=== PATIENT | male | born 1980 | race African-American/Black ===

== ENCOUNTER 2020-03-12 07:51 | Inpatient (IN) | payer OTHER ==
[~2020-03-12] VITALS: Ht 182.9 cm; Wt 94.2 kg
[2020-03-12] MEDS ORDERED: IV NORMAL SALINE 1000ML BAG 1,000 ML IV ONE ×4 (08:05→11:30)
[2020-03-12] MEDS ORDERED: ONDANSETRON PF 4 MG/2 ML VIAL. ONE (08:14)
[2020-03-12] MEDS ORDERED: MORPHINE SULFATE 2 MG/ML VIAL. IV PRN (08:30)
[2020-03-12] MEDS ORDERED: MORPHINE SULFATE 4 MG/ML VIAL. IV PRN (08:30)
[2020-03-12] MEDS ORDERED: fentaNYL PF VIAL 100 MCG/2 ML VIAL IV PRN (08:30)
--- NOTE | 2020-03-12 08:42 | PHYS DOC ---
General Adult EDM: Chief Complaint: DRUG ABUSE HPI: HPI: History obtained from EMS. Patient is a 40-year-old male who presents with chief complaint of altered mental status. Per EMS they were called to the patient's house by police for combative behavior. Family states he recently got out of [facility]. Family states concern for PCP usage. EMS states on arrival he was naked laying down in the front yard. They state upon arrival the patient was not combative. No medication was administered prior to arrival. No further history can be obtained. Review of Systems: Review of Systems: Review of symptoms on able to be obtained secondary to patient's un responsiveness Heart Score: Risk Factors: Risk Factors: DM, Current or recent (<one month) smoker, HTN, HLP, family history of CAD, obesity. Risk Scores: Score 0 - 3: 2.5% MACE over next 6 weeks - Discharge Home Score 4 - 6: 20.3% MACE over next 6 weeks - Admit for Clinical Observation Score 7 - 10: 72.7% MACE over next 6 weeks - Early Invasive Strategies Current Medications: Current Medications Medications (Trade) Dose Ordered Sig/Kylee Start Time Stop Time Status Last Admin Dose Admin Chlorhexidine Gluconate (Peridex) 15 ml BID 03/12/20 09:00 Fentanyl Citrate (Fentanyl 2ml Vial) 50 mcg PRN Q1HR PRN 03/12/20 08:30 Levetiracetam 4500 mg/Dextrose 145 ml @ 440 mls/hr 1X ONCE 03/12/20 08:30 03/12/20 08:49 UNV Lorazepam (Ativan Inj) 2 mg STK-MED ONCE 03/12/20 08:05 03/12/20 08:06 DC Morphine Sulfate (Morphine Sulfate) 4 mg PRN Q1HR PRN 03/12/20 08:30 Ondansetron HCl (Zofran) 4 mg STK-MED ONCE 03/12/20 08:14 03/12/20 08:14 DC Propofol 100 ml @ 1.5 mls/hr CONT PRN 03/12/20 09:00 Allergies: Allergies: Allergies Coded Allergies Type Severity Reaction Last Updated Verified Unable to Assess 03/12/20 No Physical Exam: PE: Constitutional: Unresponsive HENT: Normocephalic, atraumatic, bilateral external ears normal, oropharynx moist, no oral exudates, nose normal. Clenched jaw noted. [] Eyes: PERRLA, EOMI, conjunctiva injected, no discharge. [] Neck: Normal range of motion, no tenderness, supple, no stridor. [] Cardiovascular:tachycardic, rhythm, no murmur [] Lungs & Thorax: Bilateral breath sounds rhonchorous bilaterally [] Abdomen: soft, no tenderness, no masses, no pulsatile masses. [] Skin: Warm, dry, no erythema, no rash. [] Back: No tenderness, no CVA tenderness. [] Extremities: Abrasion noted overlying the right knee. No obvious extremity deformities appreciated Neurologic: GCS 3 Current Patient Data: Labs: Laboratory Tests Test 03/12/20 08:05 03/12/20 08:12 03/12/20 08:47 03/12/20 08:53 White Blood Count 16.0 x10^3/uL Red Blood Count 5.81 x10^6/uL Hemoglobin 16.9 g/dL Hematocrit 49.8 % Mean Corpuscular Volume 86 fL Mean Corpuscular Hemoglobin 29 pg Mean Corpuscular Hemoglobin Concent 34 g/dL Red Cell Distribution Width 13.9 % Platelet Count 336 x10^3/uL Neutrophils (%) (Auto) 87 % Lymphocytes (%) (Auto) 9 % Monocytes (%) (Auto) 4 % Eosinophils (%) (Auto) 0 % Basophils (%) (Auto) 0 % Neutrophils # (Auto) 13.9 x10^3/uL Lymphocytes # (Auto) 1.4 x10^3/uL Monocytes # (Auto) 0.7 x10^3/uL Eosinophils # (Auto) 0.0 x10^3/uL Basophils # (Auto) 0.0 x10^3/uL Platelet Estimate Pending Sodium Level 138 mmol/L Potassium Level 3.2 mmol/L Chloride Level 102 mmol/L Carbon Dioxide Level 23 mmol/L Anion Gap 13 Blood Urea Nitrogen 9 mg/dL Creatinine 1.6 mg/dL Estimated GFR (Cockcroft-Gault) 48.4 BUN/Creatinine Ratio 6 Glucose Level 123 mg/dL Calcium Level 9.2 mg/dL Magnesium Level 2.3 mg/dL Total Bilirubin 0.7 mg/dL Aspartate Amino Transf (AST/SGOT) 42 U/L Alanine Aminotransferase (ALT/SGPT) 20 U/L Alkaline Phosphatase 84 U/L Creatine Kinase 1854 U/L Troponin I Quantitative < 0.017 ng/mL [id number] Natriuretic Peptide 97 pg/mL Total Protein 8.0 g/dL Albumin 4.2 g/dL Albumin/Globulin Ratio 1.1 Lipase 44 U/L Salicylates Level < 2.8 mg/dL Salicylate Last Dose Date Unknown Salicylate Last Dose Time Unknown Acetaminophen Level < 2 mcg/ml Acetaminophen Last Dose Date Unknown Acetaminophen Last Dose Time Unknown Ethyl Alcohol Level < 10 mg/dL Glucose (Fingerstick) 118 mg/dL Lactic Acid Level 1.6 mmol/L Urine Collection Type Unknown Urine Color Yellow Urine Clarity Clear Urine pH 5.5 Urine Specific [place] 1.020 Urine Protein Negative mg/dL Urine Glucose (UA) Negative mg/dL Urine Ketones (Stick) 15 mg/dL Urine Blood Negative Urine Nitrite Negative Urine Bilirubin Negative Urine Urobilinogen Dipstick 1.0 mg/dL Urine Leukocyte Esterase Negative Urine RBC Occ /HPF Urine WBC Occ /HPF Urine Squamous Epithelial Cells Occ /LPF Urine Bacteria Few /HPF Urine Mucus Marked /LPF Urine Opiates Screen Neg Urine Methadone Screen Neg Urine Barbiturates Neg Urine Phencyclidine Screen Pos Urine Amphetamine/Methamphetamine Neg Urine Benzodiazepines Screen Neg Urine Cocaine Screen Pos Urine Cannabinoids Screen Pos Urine Ethyl Alcohol Neg Test 03/12/20 09:50 O2 Saturation 98 % Arterial Blood pH 7.26 Arterial Blood pCO2 at Patient Temp 44 mmHg Arterial Blood pO2 at Patient Temp 114 mmHg Arterial Blood HCO3 19 mmol/L Arterial Blood Base Excess -8 mmol/L Oxyhemoglobin 94.8 % Methemoglobin 0.4 % Carbon Monoxide, Quantitative 2.5 % FiO2 40 Current Medications Medications (Trade) Dose Ordered Sig/Kylee Route PRN Reason Start Time Stop Time Status Last Admin Dose Admin Lorazepam (Ativan Inj) 2 mg STK-MED ONCE .ROUTE 03/12/20 08:05 03/12/20 08:06 DC Ondansetron HCl (Zofran) 4 mg STK-MED ONCE .ROUTE 03/12/20 08:14 03/12/20 08:14 DC Fentanyl Citrate 30 ml @ 0 mls/hr CONT PRN IV SEE PROTOCOL 03/12/20 09:00 Fentanyl Citrate (Fentanyl 2ml Vial) 25 mcg PRN Q1HR PRN IV SEE COMMENTS 03/12/20 08:30 Fentanyl Citrate (Fentanyl 2ml Vial) 50 mcg PRN Q1HR PRN IV SEE COMMENTS 03/12/20 08:30 Chlorhexidine Gluconate (Peridex) 15 ml BID MM 03/12/20 09:00 Morphine Sulfate (Morphine Sulfate) 2 mg PRN Q1HR PRN IV SEE COMMENTS. 03/12/20 08:30 Morphine Sulfate (Morphine Sulfate) 4 mg PRN Q1HR PRN IV SEE COMMENTS. 03/12/20 08:30 Levetiracetam 4500 mg/Dextrose 145 ml @ 440 mls/hr 1X ONCE IV 03/12/20 09:00 03/12/20 09:19 DC 03/12/20 09:15 Propofol 100 ml @ 1.5 mls/hr CONT PRN IV SEDATION 03/12/20 09:00 03/12/20 09:03 Iohexol (Omnipaque 300 Mg/ml) 75 ml 1X ONCE IV 03/12/20 09:30 03/12/20 09:31 DC 03/12/20 09:52 Info (CONTRAST GIVEN -- Rx MONITORING) 1 each PRN DAILY PRN MC SEE COMMENTS 03/12/20 09:15 03/14/20 09:14 Enoxaparin Sodium (Lovenox 40mg Syringe) 30 mg BID ONCE SQ 03/12/20 10:00 03/12/20 10:01 DC Etomidate (Amidate) 20 mg STK-MED ONCE IV 03/12/20 09:52 03/12/20 09:52 DC Rocuronium [place] (Zemuron) 50 mg STK-MED ONCE .ROUTE 03/12/20 09:52 03/12/20 09:53 DC Vital Signs: Vital Signs Date Time Temp Pulse Resp B/P (MAP) Pulse Ox O2 Delivery O2 Flow Rate FiO2 03/12/20 08:12 108 16 160/70 (100) 94 Room Air 03/12/20 08:04 95 16 159/87 (111) 94 Room Air 03/12/20 07:51 98 16 168/109 (128) 94 Room Air EKG: EKG: [] EKG consistent with normal sinus rhythm. Ventricular rate of 86 bpm. [place] normal. Intervals normal. Flipped T waves noted in the lateral precordial leads. No ST segment elevation appreciated. Radiology/Procedures: Radiology/Procedures: Endotracheal Intubation Procedure Note [place] Protocol: 1. Pre-procedure verification: - Correct patient, correct site, correct procedure (correct patient verified against two identifiers: name and date of ) - H&P or H&P update complete and in medical record - Review of: Radiology images, scans, labs, pathology, biopsy reports with appropriate identifiers (if applicable) - Any required blood products, implants, devices, and/or special equipment for the procedure (if applicable) 2. Site Markings - when appropriate: N/A 3. Time Out: Time out performed (Includes validating the following: Correct patient, correct side/site marked and procedure to performed, correct position) Procedure Details: Procedure: Endotracheal intubation Indication: Acute Respiratory Failure secondary to unresponsiveness Consent: Emergency consent Procedure: The patient was placed in the supine position and pre-oxygenated with nasal cannula. Sedation was given with 30 mg of etomidate. Using a glide scope 4 blade, the cords were visualized; an 7.5 cuffed tube was able to be passed through the cords with direct visualization. Condensation was seen in the tube; bilateral breath-sounds were present, with none auscultated over the abdomen; good color change was present on EtCO2 detector. A CXR is ordered to cofirm placement. The ETT was secured at 24 cm at the lips. Mechanical ventilation is initiated at A/C, Vt 400ml, 40% FiO2, rate 16, PEEP 5. The patient tolerated procedure without immediate complication. Randall Muir DO [] [facility] [address] [place] [address] IMAGING REPORT Signed PATIENT: TRINA MCFARLAND ACCOUNT: [id number] : 1980 LOCATION: ER AGE: 40 SEX: M EXAM STATUS: REG ER ORD. PHYSICIAN: RANDALL MUIR DO REASON: FOUND DOWN, UNRESPONSIVE PROCEDURE: CT THORACIC SPINE RECONSTRUCT CT CHEST ABD PELVIS W/CONTRAST, CT THORACIC SPINE RECONSTRUCT, CT LUMBAR SPINE RECONSTRUCTION Clinical Indication: Found down, unresponsive COMPARISON: None TECHNIQUE: Multiple contiguous axial images were obtained throughout the chest, abdomen, and pelvis with the use of IV contrast. Axial images were reformatted into coronal and sagittal planes. Dedicated multiplanar reconstructions of the thoracic and lumbar spine were also obtained. 60 mL Omnipaque 300 was administered. One or more of the following dose reduction techniques were utilized: Automated exposure control (AEC), Adjustment of mA and/or kV according to patient size, Use of iterative reconstruction technique such as ASiR, CT scan done according to ALARA and image gently/image wisely. Findings: Endotracheal and enteric tubes in place. The thyroid is symmetric. There is no axillary, mediastinal, or hilar adenopathy. The thoracic aorta diameter is normal. The cardiac size is normal. There is no pericardial effusion. The central airways are patent. Bibasilar dependent opacities. No pleural effusion is observed. There is no pneumothorax. The liver, gallbladder, spleen, pancreas, and adrenal glands are unremarkable. The kidneys are unremarkable. There is no significant mesenteric or retroperitoneal adenopathy identified. There is no evidence of free intraperitoneal fluid or pneumoperitoneum. Visualized portions of the bowel are grossly unremarkable. Normal urinary bladder with Grossman catheter in place. There is no significant pelvic ascites. No significant iliac or inguinal adenopathy is identified. No acute osseous abnormality. IMPRESSION: 1. Bibasilar dependent opacities probably represents subsegmental atelectasis, although aspiration could have a similar appearance. 2. No acute abdominal process. 3. No acute thoracic or lumbar spine fracture. Electronically signed by: Matt Campo MD (03/12/2020 10:15 AM) [id number] DICTATED and SIGNED BY: MATT CAMPO MD DATE: 03/12/20 1015 [facility] [address] [place] [address] IMAGING REPORT Signed PATIENT: TRINA MCFARLAND ACCOUNT: [id number] : 1980 LOCATION: ER AGE: 40 SEX: M EXAM STATUS: REG ER ORD. PHYSICIAN: RANDALL MUIR DO REASON: FOUND DOWN, UNRESPONSIVE PROCEDURE: CT LUMBAR SPINE RECONSTRUCTION CT CHEST ABD PELVIS W/CONTRAST, CT THORACIC SPINE RECONSTRUCT, CT LUMBAR SPINE RECONSTRUCTION Clinical Indication: Found down, unresponsive COMPARISON: None TECHNIQUE: Multiple contiguous axial images were obtained throughout the chest, abdomen, and pelvis with the use of IV contrast. Axial images were reformatted into coronal and sagittal planes. Dedicated multiplanar reconstructions of the thoracic and lumbar spine were also obtained. 60 mL Omnipaque 300 was administered. One or more of the following dose reduction techniques were utilized: Automated exposure control (AEC), Adjustment of mA and/or kV according to patient size, Use of iterative reconstruction technique such as ASiR, CT scan done according to ALARA and image gently/image wisely. Findings: Endotracheal and enteric tubes in place. The thyroid is symmetric. There is no axillary, mediastinal, or hilar adenopathy. The thoracic aorta diameter is normal. The cardiac size is normal. There is no pericardial effusion. The central airways are patent. Bibasilar dependent opacities. No pleural effusion is observed. There is no pneumothorax. The liver, gallbladder, spleen, pancreas, and adrenal glands are unremarkable. The kidneys are unremarkable. There is no significant mesenteric or retroperitoneal adenopathy identified. There is no evidence of free intraperitoneal fluid or pneumoperitoneum. Visualized portions of the bowel are grossly unremarkable. Normal urinary bladder with Grossman catheter in place. There is no significant pelvic ascites. No significant iliac or inguinal adenopathy is identified. No acute osseous abnormality. IMPRESSION: 1. Bibasilar dependent opacities probably represents subsegmental atelectasis, although aspiration could have a similar appearance. 2. No acute abdominal process. 3. No acute thoracic or lumbar spine fracture. Electronically signed by: Matt Campo MD (03/12/2020 10:15 AM) [id number] DICTATED and SIGNED BY: MATT CAMPO MD DATE: 03/12/20 1015 [facility] [address] [place], [place] [id number] IMAGING REPORT Signed PATIENT: TRINA MCFARLAND ACCOUNT: [id number] : 1980 LOCATION: ER AGE: 40 SEX: M EXAM STATUS: REG ER ORD. PHYSICIAN: RANDALL MUIR DO REASON: found down. unresponsive PROCEDURE: CT HEAD AND CERVICAL SPINE [facility] Compliance Statement: One or more of the following individualized dose reduction techniques were utilized for this examination: 1. Automated exposure control 2. Adjustment of the mA and/or kV according to patient size 3. Use of iterative reconstruction technique CT HEAD AND CERVICAL SPINE WITHOUT CONTRAST History: Reason: found down. unresponsive / Spl. Instructions: / History: Comparison: None. Procedure: Axial images are obtained of the head from the skull base through the vertex without IV contrast. Noncontrast helical CT of the cervical spine was performed. Axial, sagittal, and coronal reconstructions were obtained. Findings: The ventricles and sulci are normal for the patient's age. No mass-effect, midline shift, hemorrhage or obvious acute infarction is identified. Basilar cisterns are patent. Bone windows demonstrate no significant calvarial abnormality. The visualized paranasal sinuses are clear. Mastoid air cells are well aerated. There is no evidence of acute fracture or acute malalignment of the cervical spine. The facet joints are intact. The vertebral body height and alignment are maintained. There is minimal endplate spurring. No significant disc space narrowing. Endotracheal and enteric tubes are noted. Visualized soft tissues of the neck demonstrate no significant abnormalities. The visualized lung apices are clear. IMPRESSION: 1. No acute intracranial abnormality. 2. No acute fracture of the cervical spine. Electronically signed by: Scout Santana MD (03/12/2020 9:59 AM) [facility] DICTATED and SIGNED BY: SCOUT SANTANA MD DATE: 03/12/20958 [facility] [address] [place], [place] [id number] IMAGING REPORT Signed PATIENT: TRINA MCFARLAND ACCOUNT: [id number] : 1980 LOCATION: ER AGE: 40 SEX: M EXAM STATUS: REG ER ORD. PHYSICIAN: RANDALL MUIR DO REASON: found down. unresponsive PROCEDURE: CT CHEST ABD PELVIS W/CONTRAST CT CHEST ABD PELVIS W/CONTRAST, CT THORACIC SPINE RECONSTRUCT, CT LUMBAR SPINE RECONSTRUCTION Clinical Indication: Found down, unresponsive COMPARISON: None TECHNIQUE: Multiple contiguous axial images were obtained throughout the chest, abdomen, and pelvis with the use of IV contrast. Axial images were reformatted into coronal and sagittal planes. Dedicated multiplanar reconstructions of the thoracic and lumbar spine were also obtained. 60 mL Omnipaque 300 was administered. One or more of the following dose reduction techniques were utilized: Automated exposure control (AEC), Adjustment of mA and/or kV according to patient size, Use of iterative reconstruction technique such as ASiR, CT scan done according to ALARA and image gently/image wisely. Findings: Endotracheal and enteric tubes in place. The thyroid is symmetric. There is no axillary, mediastinal, or hilar adenopathy. The thoracic aorta diameter is normal. The cardiac size is normal. There is no pericardial effusion. The central airways are patent. Bibasilar dependent opacities. No pleural effusion is observed. There is no pneumothorax. The liver, gallbladder, spleen, pancreas, and adrenal glands are unremarkable. The kidneys are unremarkable. There is no significant mesenteric or retroperitoneal adenopathy identified. There is no evidence of free intraperitoneal fluid or pneumoperitoneum. Visualized portions of the bowel are grossly unremarkable. Normal urinary bladder with Grossman catheter in place. There is no significant pelvic ascites. No significant iliac or inguinal adenopathy is identified. No acute osseous abnormality. IMPRESSION: 1. Bibasilar dependent opacities probably represents subsegmental atelectasis, although aspiration could have a similar appearance. 2. No acute abdominal process. 3. No acute thoracic or lumbar spine fracture. Electronically signed by: Matt Campo MD (03/12/2020 10:15 AM) [id number] DICTATED and SIGNED BY: MATT CAMPO MD DATE: 03/12/20 1015 [facility] [address] [place], [place] [id number] IMAGING REPORT Signed PATIENT: TRINA MCFARLAND ACCOUNT: [id number] : 1980 LOCATION: ER AGE: 40 SEX: M EXAM STATUS: REG ER ORD. PHYSICIAN: RANDALL MUIR DO REASON: confirm ET PROCEDURE: CHEST AP ONLY CHEST AP ONLY Clinical Indication: Reason: confirm ET / Comparison: None. Findings: Endotracheal tube tip is 4.6 cm superior to the kendall. The cardiomediastinal silhouette is normal. Lungs are clear. There is no pneumothorax. No pleural effusion is appreciated. No acute bone abnormality. Thin linear metallic density projects over the lateral left upper lung. There is fracture of this metallic density medially. The lateral metallic density may have a tiny luis felipe. Finding could be a needle or hook. Correlate to physical exam. IMPRESSION: 1. Endotracheal tube tip is 4.6 cm superior to the kendall. 2. Lungs are clear. 3. Possible metallic foreign body of the upper left chest. Electronically signed by: Scout Santana MD (03/12/2020 9:19 AM) [facility] DICTATED and SIGNED BY: SCOUT SANTANA MD DATE: 03/12/20918 Course & Med Decision Making: Course & Med Decision Making Pertinent Labs and Imaging studies reviewed. (See chart for details) [] Patient is a 40-year-old male who presents via EMS for unresponsiveness and possible substance abuse. On arrival patient had a GCS of 3. Child did appear clenched. No obvious signs of tonic-clonic activity. Pupils are 3 mm and sluggishly reactive bilaterally. He did have abrasions overlying the right knee. Initially I was concerned for subclinical seizure potential drug reaction. Patient was given 4 mg of IV Ativan. No response to the patient's mentation or change in the patient's jaw clenching. Given the unclear etiology of the patient's unresponsiveness, GCS 3, and outward signs of trauma the decision was made to intubate the patient for airway protection as well as to facilitate work-up. See procedure note for further details. Patient's UDS is positive for multiple substances including cocaine, PCP, marijuana. Mild elevation of CK indicating mild rhabdomyolysis. Mild JOLIE. Advanced trauma imaging was obtained was grossly unremarkable. Potential atelectasis in the bases bilaterally. Given a mild leukocytosis of 16,000 with unresponsiveness Unasyn will be administered given the potential for aspiration pneumonia versus pneumonitis. Patient was given aggressive fluid resuscitation. He was loaded with 4500 mg of Keppra given the possibility of subclinical seizures although I do have overall low suspicion of this. Patient has been comfortably sedated on propofol. Patient will require hospitalization and further ventilator management. Dragon Disclaimer: Dragon Disclaimer: This electronic medical record was generated, in whole or in part, using a voice recognition dictation system. Departure Departure Impression: Primary Impression: Respiratory failure Qualified Codes: J96.00 - Acute respiratory failure, unspecified whether with hypoxia or hypercapnia Additional Impressions: Polysubstance abuse Rhabdomyolysis Qualified Codes: M62.82 - Rhabdomyolysis JOLIE (acute kidney injury) Disposition: ADMITTED INPT THIS HOSP Condition: STABLE RANDALL MUIR DO Mar 12, 2020 08:42
[2020-03-12 08:45] LABS: BASO % 0 % (0-3); EOS % 0 % (0-3); HEMATOCRIT 49.8 % (39.0-53.0); HEMOGLOBIN 16.9 g/dL (13.0-17.5); LYMPH # 1.4 x10^3/uL (1.0-4.8); LYMPH % 9 % (24-48); MEAN CORPUSCULAR HEMOGLOBIN 29 pg (25-35); MEAN CORPUSCULAR HGB CONC 34 g/dL (31-37); MEAN CORPUSCULAR VOLUME 86 fL (79-100); MONO # 0.7 x10^3/uL (0.0-1.1); MONO % 4 % (0-9); NEUT # 13.9 x10^3/uL (1.8-7.7); NEUT % 87 % (31-73); PLATELET COUNT 336 x10^3/uL (140-400); RED BLOOD COUNT 5.81 x10^6/uL (4.30-5.70); RED CELL DISTRIBUTION WIDTH 13.9 % (11.5-14.5)
[2020-03-12 08:56] LABS: CALCIUM 9.2 mg/dL (8.5-10.1); CREATININE 1.6 mg/dL (0.7-1.3); GFR 48.4; POTASSIUM 3.2 mmol/L (3.5-5.1)
[2020-03-12 08:59] LABS: ACETAMIN < 2 mcg/ml (10-30); ETHANOL < 10 mg/dL (0-10); SALIC < 2.8 mg/dL (2.8-20.0)
[2020-03-12] MEDS ORDERED: LEVETIRACETAM IV ONE (09:00)
[2020-03-12] MEDS ORDERED: PROPOFOL 100 ML IV PRN (09:00)
[2020-03-12] MEDS ORDERED: DEXTROSE 5% IV ONE (09:00)
[2020-03-12] MEDS: CHLORHEXIDINE 0.12% 15 ML MOUTHWASH. MM SCH ×2 (09:00→21:38)
[2020-03-12 09:04] LABS: BILIRUBIN,URINE NEGATIVE (NEG); CLARITY,URINE CLEAR; COLOR,URINE YELLOW; NITRITE,URINE NEGATIVE (NEG); PH,URINE 5.5 (<5.0-8.0); PROTEIN,URINE NEGATIVE (NEG-TRACE)
[2020-03-12 09:11] LABS: ALBUMIN 4.2 g/dL (3.4-5.0); ALBUMIN/GLOBULIN RATIO 1.1 (1.0-1.7); MAGNESIUM 2.3 mg/dL (1.8-2.4); TOTAL BILIRUBIN 0.7 mg/dL (0.2-1.0)
[2020-03-12 09:13] LABS: BARBITURATES NEG (NEG); BENZODIAZEPINES NEG (NEG); CANNABINOIDS POS (NEG); COCAINE POS (NEG); METHADONE NEG (NEG); OPIATES NEG (NEG); PHENCYCLIDINE POS (NEG)
[2020-03-12 09:15] LABS: AMPHETAMINE/METHAMPHETAMINE NEG (NEG)
[2020-03-12] MEDS ORDERED: CONTRAST GIVEN. MC PRN (09:15)
--- NOTE | 2020-03-12 09:22 | RAD ---
CHEST AP ONLY Clinical Indication: Reason: confirm ET / Comparison: None. Findings: Endotracheal tube tip is 4.6 cm superior to the kendall. The cardiomediastinal silhouette is normal. Lungs are clear. There is no pneumothorax. No pleural effusion is appreciated. No acute bone abnormality. Thin linear metallic density projects over the lateral left upper lung. There is fracture of this metallic density medially. The lateral metallic density may have a tiny luis felipe. Finding could be a needle or hook. Correlate to physical exam. IMPRESSION: 1. Endotracheal tube tip is 4.6 cm superior to the kendall. 2. Lungs are clear. 3. Possible metallic foreign body of the upper left chest. Electronically signed by: Scout Santana MD (03/12/2020 9:19 AM) [facility]
[2020-03-12] MEDS ORDERED: IOHEXOL 300 MG/ML 100ML VIAL. IV ONE (09:30)
[2020-03-12 09:35] LABS: BACTERIA,URINE FEW /HPF (0-FEW); RBC,URINE OCC /HPF (0-2); WBC,URINE OCC /HPF (0-4)
[2020-03-12] MEDS ORDERED: ETOMIDATE 20 MG/10 ML VIAL. IV ONE (09:52)
[2020-03-12] MEDS ORDERED: ROCURONIUM 50 MG/5 ML VIAL. ONE (09:52)
[2020-03-12] MEDS ORDERED: ENOXAPARIN 40 MG/0.4 ML SYRINGE. SQ ONE (10:00)
--- NOTE | 2020-03-12 10:02 | RAD ---
PQRS Compliance Statement: One or more of the following individualized dose reduction techniques were utilized for this examination: 1. Automated exposure control 2. Adjustment of the mA and/or kV according to patient size 3. Use of iterative reconstruction technique CT HEAD AND CERVICAL SPINE WITHOUT CONTRAST History: Reason: found down. unresponsive / Spl. Instructions: / History: Comparison: None. Procedure: Axial images are obtained of the head from the skull base through the vertex without IV contrast. Noncontrast helical CT of the cervical spine was performed. Axial, sagittal, and coronal reconstructions were obtained. Findings: The ventricles and sulci are normal for the patient's age. No mass-effect, midline shift, hemorrhage or obvious acute infarction is identified. Basilar cisterns are patent. Bone windows demonstrate no significant calvarial abnormality. The visualized paranasal sinuses are clear. Mastoid air cells are well aerated. There is no evidence of acute fracture or acute malalignment of the cervical spine. The facet joints are intact. The vertebral body height and alignment are maintained. There is minimal endplate spurring. No significant disc space narrowing. Endotracheal and enteric tubes are noted. Visualized soft tissues of the neck demonstrate no significant abnormalities. The visualized lung apices are clear. IMPRESSION: 1. No acute intracranial abnormality. 2. No acute fracture of the cervical spine. Electronically signed by: Scout Santana MD (03/12/2020 9:59 AM) [facility]
[2020-03-12 10:13] LABS: PCO2 COOX 44 mmHg (35-46)
[2020-03-12 10:14] LABS: BASE EXCESS COOX -8 mmol/L (-3-3); HCO3 COOX 19 mmol/L (21-28); METHEMOGLOBIN 0.4 % (0.0-1.9); OXYHEMOGLOBIN 94.8 %; PO2 COOX 114 mmHg (75-108); SAT O2 COOX 98 % (92-99)
--- NOTE | 2020-03-12 10:18 | RAD ---
CT CHEST ABD PELVIS W/CONTRAST, CT THORACIC SPINE RECONSTRUCT, CT LUMBAR SPINE RECONSTRUCTION Clinical Indication: Found down, unresponsive COMPARISON: None TECHNIQUE: Multiple contiguous axial images were obtained throughout the chest, abdomen, and pelvis with the use of IV contrast. Axial images were reformatted into coronal and sagittal planes. Dedicated multiplanar reconstructions of the thoracic and lumbar spine were also obtained. 60 mL Omnipaque 300 was administered. One or more of the following dose reduction techniques were utilized: Automated exposure control (AEC), Adjustment of mA and/or kV according to patient size, Use of iterative reconstruction technique such as ASiR, CT scan done according to ALARA and image gently/image wisely. Findings: Endotracheal and enteric tubes in place. The thyroid is symmetric. There is no axillary, mediastinal, or hilar adenopathy. The thoracic aorta diameter is normal. The cardiac size is normal. There is no pericardial effusion. The central airways are patent. Bibasilar dependent opacities. No pleural effusion is observed. There is no pneumothorax. The liver, gallbladder, spleen, pancreas, and adrenal glands are unremarkable. The kidneys are unremarkable. There is no significant mesenteric or retroperitoneal adenopathy identified. There is no evidence of free intraperitoneal fluid or pneumoperitoneum. Visualized portions of the bowel are grossly unremarkable. Normal urinary bladder with Grossman catheter in place. There is no significant pelvic ascites. No significant iliac or inguinal adenopathy is identified. No acute osseous abnormality. IMPRESSION: 1. Bibasilar dependent opacities probably represents subsegmental atelectasis, although aspiration could have a similar appearance. 2. No acute abdominal process. 3. No acute thoracic or lumbar spine fracture. Electronically signed by: Amarjit Campo MD (03/12/2020 10:15 AM) [id number]
--- NOTE | 2020-03-12 10:37 | RAD ---
KNEE RIGHT 3V DATE: 03/12/2020 8:29 AM INDICATION: Reason: RIGHT KNEE BRUISING, ABRASION / Spl. Instructions: / History: COMPARISON: None. FINDINGS: Bones: There is no evidence of acute fracture or dislocation. Joints: The joint spaces are normal. There is no joint effusion. Miscellaneous: None. IMPRESSION: No evidence of acute fracture. Electronically signed by: Amarjit Campo MD (03/12/2020 10:34 AM) [id number]
[2020-03-12] MEDS: fentaNYL PF VIAL 100 MCG/2 ML VIAL IV PRN ×6 (10:48→23:42)
[2020-03-12] MEDS ORDERED: AMPICILLIN/SULBACTAM 3 GM in IV NORMAL SALINE 100ML 100 ML IV ONE (11:00)
--- NOTE | 2020-03-12 11:11 | EKG ---
[facility] [address] [place] [address] Test Date: 2020-03-12 Test Time: 09:17:08 Pat Name: TRINA MCFARLAND Department: Room: Gender: M Pattern Grader: NILESH : 1980 Requested By: SUSSY HERNANDEZ Order Number: [id number] Reading MD: Measurements Intervals [place] Rate: 86 P: 54 AR: 142 QRS: 27 QRSD: 94 T: 5 QT: 390 QTc: 470 Interpretive Statements SINUS RHYTHM INCOMPLETE RIGHT BUNDLE BRANCH BLOCK T ABNORMALITY IN ANTEROLATERAL LEADS ABNORMAL ECG RI6.02 No previous ECG available for comparison
--- NOTE | 2020-03-12 11:11 | PDOC1 ---
History and Physical Date of Service: DOS: DATE: 03/12/20 TIME: 11:06 Chief Complaint: Chief Complain: altered mental status History of Present Illness: HPI: 40-year-old male who presents with chief complaint of altered mental status. Per EMS they were called to the patient's house by police for combative behavior. Family states he recently got out of correction. Family states concern for PCP usage. EMS states on arrival he was naked laying down in the front yard. They state upon arrival the patient was not combative. No medication was administered prior to arrival. No further history can be obtained. Past Medical/Surgical History: PMH/PSH: Unable to obtain due to ventilation and sedation Allergies: Allergies: Coded Allergies: Unable to Assess (Unverified , 03/12/20) unresponsive Family History: Family History: Unable to obtain due to ventilation and sedation Social History: Social History: Unable to obtain due to ventilation and sedation Current Medications: Current Medications Current Medications Lorazepam (Ativan Inj) 2 mg STK-MED ONCE .ROUTE ; Start 03/12/20 at 08:05; Stop 03/12/20 at 08:06; Status DC Ondansetron HCl (Zofran) 4 mg STK-MED ONCE .ROUTE ; Start 03/12/20 at 08:14; Stop 03/12/20 at 08:14; Status DC Fentanyl Citrate 30 ml @ 0 mls/hr CONT PRN IV SEE PROTOCOL; Start 03/12/20 at 09:00 Fentanyl Citrate (Fentanyl 2ml Vial) 25 mcg PRN Q1HR PRN IV SEE COMMENTS; Start 03/12/20 at 08:30 Fentanyl Citrate (Fentanyl 2ml Vial) 50 mcg PRN Q1HR PRN IV SEE COMMENTS Last administered on 03/12/20at 10:48; Start 03/12/20 at 08:30 Chlorhexidine Gluconate (Peridex) 15 ml BID MM ; Start 03/12/20 at 09:00 Morphine Sulfate (Morphine Sulfate) 2 mg PRN Q1HR PRN IV SEE COMMENTS.; Start 03/12/20 at 08:30 Morphine Sulfate (Morphine Sulfate) 4 mg PRN Q1HR PRN IV SEE COMMENTS.; Start 03/12/20 at 08:30 Levetiracetam 4500 mg/Dextrose 145 ml @ 440 mls/hr 1X ONCE IV Last administered on 03/12/20at 09:15; Start 03/12/20 at 09:00; Stop 03/12/20 at 09:19; Status DC Propofol 100 ml @ 1.5 mls/hr CONT PRN IV SEDATION Last administered on 03/12/20at 09:03; Start 03/12/20 at 09:00 Iohexol (Omnipaque 300 Mg/ml) 75 ml 1X ONCE IV Last administered on 03/12/20at 09:52; Start 03/12/20 at 09:30; Stop 03/12/20 at 09:31; Status DC Info (CONTRAST GIVEN -- Rx MONITORING) 1 each PRN DAILY PRN MC SEE COMMENTS; Start 03/12/20 at 09:15; Stop 03/14/20 at 09:14 Enoxaparin Sodium (Lovenox 40mg Syringe) 30 mg BID ONCE SQ ; Start 03/12/20 at 10:00; Stop 03/12/20 at 10:01; Status DC Etomidate (Amidate) 20 mg STK-MED ONCE IV ; Start 03/12/20 at 09:52; Stop 03/12/20 at 09:52; Status DC Rocuronium Dixon (Zemuron) 50 mg STK-MED ONCE .ROUTE ; Start 03/12/20 at 09:52; Stop 03/12/20 at 09:53; Status DC Ampicillin Sodium/ Sulbactam Sodium 3 gm/Sodium Chloride 100 ml @ 200 mls/hr 1X ONCE IV Last administered on 03/12/20at 10:52; Start 03/12/20 at 11:00; Stop 03/12/20 at 11:29 ROS: Review of Systems Review of System Unable to obtain due to ventilation and sedation Physical Exam: Vital Signs: Vital Signs Date Time Temp Pulse Resp B/P (MAP) Pulse Ox O2 Delivery O2 Flow Rate FiO2 03/12/20 10:20 94 16 166/94 (118) 97 Ventilator Physcial Exam: GEN: No apparent distress. Alert and oriented HEENT: Normal cephalic, atraumatic, external auditory canals are patent EYES: Extraocular muscles are intact, pupil are equally round and reactive to light and accommodation MUSCULOSKELETAL: Well developed , well nourished, good range of motion ENDOCRINE: No thyromegaly was palpated LYMPHATICS: No cervical chain or axillary nodes were noted HEMATOPOIETIC: No bruising NECK: Supple, no JVD, no thyromegaly was noted LUNGS: Clear to auscultation in all lung fung without rhonchi or wheezing HEART: RRR, S!, S2 present. Peripheral pulses intact, no obvious murmurs noted ABDOMEN: Soft, nontender. Positive bowel sounds, no organomegaly, normal bowel sounds EXTREMITIES: No pedal edema. Bilateral knee scrapes. No deformation NEUROLOGIC: Normal speech and tone. A&O x 3, moves all extremities, no obvi ous focal deficits PSYCHIATRIC: Normal affect, normal mood. Stable SKIN: No ulcerations or rashes, good skin turgor, no jaundice VASCULAR: Good capillary refill, neurovascular bundle appears to be intact Labs: Labs: Laboratory Tests Test 03/12/20 08:05 03/12/20 08:12 03/12/20 08:47 03/12/20 08:53 White Blood Count 16.0 x10^3/uL (4.0-11.0) Red Blood Count 5.81 x10^6/uL (4.30-5.70) Hemoglobin 16.9 g/dL (13.0-17.5) Hematocrit 49.8 % (39.0-53.0) Mean Corpuscular Volume 86 fL (79-100) Mean Corpuscular Hemoglobin 29 pg (25-35) Mean Corpuscular Hemoglobin Concent 34 g/dL (31-37) Red Cell Distribution Width 13.9 % (11.5-14.5) Platelet Count 336 x10^3/uL (140-400) Neutrophils (%) (Auto) 87 % (31-73) Lymphocytes (%) (Auto) 9 % (24-48) Monocytes (%) (Auto) 4 % (0-9) Eosinophils (%) (Auto) 0 % (0-3) Basophils (%) (Auto) 0 % (0-3) Neutrophils # (Auto) 13.9 x10^3/uL (1.8-7.7) Lymphocytes # (Auto) 1.4 x10^3/uL (1.0-4.8) Monocytes # (Auto) 0.7 x10^3/uL (0.0-1.1) Eosinophils # (Auto) 0.0 x10^3/uL (0.0-0.7) Basophils # (Auto) 0.0 x10^3/uL (0.0-0.2) Sodium Level 138 mmol/L (136-145) Potassium Level 3.2 mmol/L (3.5-5.1) Chloride Level 102 mmol/L (98-107) Carbon Dioxide Level 23 mmol/L (21-32) Anion Gap 13 (6-14) Blood Urea Nitrogen 9 mg/dL (8-26) Creatinine 1.6 mg/dL (0.7-1.3) Estimated GFR (Cockcroft-Gault) 48.4 BUN/Creatinine Ratio 6 (6-20) Glucose Level 123 mg/dL (70-99) Calcium Level 9.2 mg/dL (8.5-10.1) Magnesium Level 2.3 mg/dL (1.8-2.4) Total Bilirubin 0.7 mg/dL (0.2-1.0) Aspartate Amino Transf (AST/SGOT) 42 U/L (15-37) Alanine Aminotransferase (ALT/SGPT) 20 U/L (16-63) Alkaline Phosphatase 84 U/L (46-116) Creatine Kinase 1854 U/L (39-308) Troponin I Quantitative < 0.017 ng/mL (0.000-0.055) US-Tzy-P-Type Natriuretic Peptide 97 pg/mL (0-124) Total Protein 8.0 g/dL (6.4-8.2) Albumin 4.2 g/dL (3.4-5.0) Albumin/Globulin Ratio 1.1 (1.0-1.7) Lipase 44 U/L (73-393) Salicylates Level < 2.8 mg/dL (2.8-20.0) Salicylate Last Dose Date Unknown Salicylate Last Dose Time Unknown Acetaminophen Level < 2 mcg/ml (10-30) Acetaminophen Last Dose Date Unknown Acetaminophen Last Dose Time Unknown Ethyl Alcohol Level < 10 mg/dL (0-10) Glucose (Fingerstick) 118 mg/dL (70-99) Lactic Acid Level 1.6 mmol/L (0.4-2.0) Urine Collection Type Unknown Urine Color Yellow Urine Clarity Clear Urine pH 5.5 (<5.0-8.0) Urine Specific [place] 1.020 (1.000-1.030) Urine Protein Negative mg/dL (NEG-TRACE) Urine Glucose (UA) Negative mg/dL (NEG) Urine Ketones (Stick) 15 mg/dL (NEG) Urine Blood Negative (NEG) Urine Nitrite Negative (NEG) Urine Bilirubin Negative (NEG) Urine Urobilinogen Dipstick 1.0 mg/dL (0.2 mg/dL) Urine Leukocyte Esterase Negative (NEG) Urine RBC Occ /HPF (0-2) Urine WBC Occ /HPF (0-4) Urine Squamous Epithelial Cells Occ /LPF Urine Bacteria Few /HPF (0-FEW) Urine Mucus Marked /LPF Urine Opiates Screen Neg (NEG) Urine Methadone Screen Neg (NEG) Urine Barbiturates Neg (NEG) Urine Phencyclidine Screen Pos (NEG) Urine Amphetamine/Methamphetamine Neg (NEG) Urine Benzodiazepines Screen Neg (NEG) Urine Cocaine Screen Pos (NEG) Urine Cannabinoids Screen Pos (NEG) Urine Ethyl Alcohol Neg (NEG) Test 03/12/20 09:50 O2 Saturation 98 % (92-99) Arterial Blood pH 7.26 (7.35-7.45) Arterial Blood pCO2 at Patient Temp 44 mmHg (35-46) Arterial Blood pO2 at Patient Temp 114 mmHg (75-108) Arterial Blood HCO3 19 mmol/L (21-28) Arterial Blood Base Excess -8 mmol/L (-3-3) Oxyhemoglobin 94.8 % Methemoglobin 0.4 % (0.0-1.9) Carbon Monoxide, Quantitative 2.5 % (0.0-1.9) FiO2 40 Laboratory Tests Test 03/12/20 08:05 03/12/20 08:12 03/12/20 08:47 03/12/20 08:53 White Blood Count 16.0 x10^3/uL (4.0-11.0) Red Blood Count 5.81 x10^6/uL (4.30-5.70) Hemoglobin 16.9 g/dL (13.0-17.5) Hematocrit 49.8 % (39.0-53.0) Mean Corpuscular Volume 86 fL (79-100) Mean Corpuscular Hemoglobin 29 pg (25-35) Mean Corpuscular Hemoglobin Concent 34 g/dL (31-37) Red Cell Distribution Width 13.9 % (11.5-14.5) Platelet Count 336 x10^3/uL (140-400) Neutrophils (%) (Auto) 87 % (31-73) Lymphocytes (%) (Auto) 9 % (24-48) Monocytes (%) (Auto) 4 % (0-9) Eosinophils (%) (Auto) 0 % (0-3) Basophils (%) (Auto) 0 % (0-3) Neutrophils # (Auto) 13.9 x10^3/uL (1.8-7.7) Lymphocytes # (Auto) 1.4 x10^3/uL (1.0-4.8) Monocytes # (Auto) 0.7 x10^3/uL (0.0-1.1) Eosinophils # (Auto) 0.0 x10^3/uL (0.0-0.7) Basophils # (Auto) 0.0 x10^3/uL (0.0-0.2) Sodium Level 138 mmol/L (136-145) Potassium Level 3.2 mmol/L (3.5-5.1) Chloride Level 102 mmol/L (98-107) Carbon Dioxide Level 23 mmol/L (21-32) Anion Gap 13 (6-14) Blood Urea Nitrogen 9 mg/dL (8-26) Creatinine 1.6 mg/dL (0.7-1.3) Estimated GFR (Cockcroft-Gault) 48.4 BUN/Creatinine Ratio 6 (6-20) Glucose Level 123 mg/dL (70-99) Calcium Level 9.2 mg/dL (8.5-10.1) Magnesium Level 2.3 mg/dL (1.8-2.4) Total Bilirubin 0.7 mg/dL (0.2-1.0) Aspartate Amino Transf (AST/SGOT) 42 U/L (15-37) Alanine Aminotransferase (ALT/SGPT) 20 U/L (16-63) Alkaline Phosphatase 84 U/L (46-116) Creatine Kinase 1854 U/L (39-308) Troponin I Quantitative < 0.017 ng/mL (0.000-0.055) RH-Kdq-X-Type Natriuretic Peptide 97 pg/mL (0-124) Total Protein 8.0 g/dL (6.4-8.2) Albumin 4.2 g/dL (3.4-5.0) Albumin/Globulin Ratio 1.1 (1.0-1.7) Lipase 44 U/L (73-393) Salicylates Level < 2.8 mg/dL (2.8-20.0) Salicylate Last Dose Date Unknown Salicylate Last Dose Time Unknown Acetaminophen Level < 2 mcg/ml (10-30) Acetaminophen Last Dose Date Unknown Acetaminophen Last Dose Time Unknown Ethyl Alcohol Level < 10 mg/dL (0-10) Glucose (Fingerstick) 118 mg/dL (70-99) Lactic Acid Level 1.6 mmol/L (0.4-2.0) Urine Collection Type Unknown Urine Color Yellow Urine Clarity Clear Urine pH 5.5 (<5.0-8.0) Urine Specific [place] 1.020 (1.000-1.030) Urine Protein Negative mg/dL (NEG-TRACE) Urine Glucose (UA) Negative mg/dL (NEG) Urine Ketones (Stick) 15 mg/dL (NEG) Urine Blood Negative (NEG) Urine Nitrite Negative (NEG) Urine Bilirubin Negative (NEG) Urine Urobilinogen Dipstick 1.0 mg/dL (0.2 mg/dL) Urine Leukocyte Esterase Negative (NEG) Urine RBC Occ /HPF (0-2) Urine WBC Occ /HPF (0-4) Urine Squamous Epithelial Cells Occ /LPF Urine Bacteria Few /HPF (0-FEW) Urine Mucus Marked /LPF Urine Opiates Screen Neg (NEG) Urine Methadone Screen Neg (NEG) Urine Barbiturates Neg (NEG) Urine Phencyclidine Screen Pos (NEG) Urine Amphetamine/Methamphetamine Neg (NEG) Urine Benzodiazepines Screen Neg (NEG) Urine Cocaine Screen Pos (NEG) Urine Cannabinoids Screen Pos (NEG) Urine Ethyl Alcohol Neg (NEG) Test 03/12/20 09:50 O2 Saturation 98 % (92-99) Arterial Blood pH 7.26 (7.35-7.45) Arterial Blood pCO2 at Patient Temp 44 mmHg (35-46) Arterial Blood pO2 at Patient Temp 114 mmHg (75-108) Arterial Blood HCO3 19 mmol/L (21-28) Arterial Blood Base Excess -8 mmol/L (-3-3) Oxyhemoglobin 94.8 % Methemoglobin 0.4 % (0.0-1.9) Carbon Monoxide, Quantitative 2.5 % (0.0-1.9) FiO2 40 Images: Images CT CHEST/ABD/PELVIS IMPRESSION: 1. Bibasilar dependent opacities probably represents subsegmental atelectasis, although aspiration could have a similar appearance. 2. No acute abdominal process. 3. No acute thoracic or lumbar spine fracture. HEAD AND CERVICAL CT SPINE IMPRESSION: 1. No acute intracranial abnormality. 2. No acute fracture of the cervical spine Assessment/Plan Assessment/Plan Acute toxic and metabolic encephalopathy due to multiple etiologies Acute respiratory failure, unclear hypoxic or hypercapnic Polysubstance abuse Rhabdomyolysis Acute kidney injury due to vasomotor nephropathy Reactive leukocytosis Acute electrolyte derangementshypokalemia Admit to ICU for vent management Pulmonology consult PAT consult when patient is awake Trend creatinine Avoid nephrotoxic agents Continue IV fluids to maintain urine output at around 50 cc/h Avoid beta-blockers due to recent cocaine use Lovenox for DVT prophylaxis Protonix GI prophylaxis ADA diet Full code Discussed with RN and SW Disposition ICU care Surrogate decision maker is unknown Total critical care time spent of 55 minutes Justifications for Admission Other Justification KLARISSA MILLER MD Mar 12, 2020 11:11
[2020-03-12] MEDS ORDERED: NOREPINEPHRINE VIAL 8 MG in IV DEXTROSE 5% 250 ML IV PRN (12:00)
[2020-03-12] MEDS: MIDAZOLAM 100mg/100ml NS BAG 100 ML IV PRN ×2 (12:52→22:48)
[2020-03-12] MEDS: IV NORMAL SALINE 1000ML BAG 1,000 ML IV SCH (13:00)
[2020-03-12 13:36] LABS: % BANDS 1 % (0-9); % LYMPHS 8 % (24-48); % MONOS 3 % (0-10); % SEGS 88 % (35-66); PLT ESTIMATE ADEQUATE (ADEQUATE)
[2020-03-12 19:00] VITALS: BP 154/103
[2020-03-12 20:00] VITALS: BP 130/80
[2020-03-12 21:00] VITALS: BP 121/77
[2020-03-12 22:00] VITALS: BP 144/87
[2020-03-12 23:00] VITALS: BP 131/81
[2020-03-13] VITALS (14 sets, daily range): BP systolic 133–180; BP diastolic 78–107
[2020-03-13] MEDS: fentaNYL PF VIAL 100 MCG/2 ML VIAL IV PRN ×3 (04:15→07:33)
[2020-03-13 06:26] LABS: BASO # 0.1 x10^3/uL (0.0-0.2); BASO % 1 % (0-3); EOS # 0.1 x10^3/uL (0.0-0.7); EOS % 2 % (0-3); HEMATOCRIT 43.1 % (39.0-53.0); HEMOGLOBIN 14.4 g/dL (13.0-17.5); LYMPH # 2.4 x10^3/uL (1.0-4.8); LYMPH % 25 % (24-48); MEAN CORPUSCULAR HEMOGLOBIN 29 pg (25-35); MEAN CORPUSCULAR HGB CONC 33 g/dL (31-37); MEAN CORPUSCULAR VOLUME 86 fL (79-100); MONO # 0.7 x10^3/uL (0.0-1.1); MONO % 7 % (0-9); NEUT # 6.3 x10^3/uL (1.8-7.7); NEUT % 65 % (31-73); PLATELET COUNT 267 x10^3/uL (140-400); RED CELL DISTRIBUTION WIDTH 14.1 % (11.5-14.5); WHITE BLOOD COUNT 9.6 x10^3/uL (4.0-11.0)
[2020-03-13 06:42] LABS: CALCIUM 8.2 mg/dL (8.5-10.1); CREATININE 1.1 mg/dL (0.7-1.3); GFR 90.2; POTASSIUM 3.4 mmol/L (3.5-5.1)
[2020-03-13 07:36] LABS: BASE EXCESS ABG -4 mmol/L (-3-3); HCO3 ABG 20 mmol/L (21-28); PCO2 ABG 32 mmHg (35-46); PO2 ABG 101 mmHg (75-108); SAT O2 ABG 97 % (92-99)
[2020-03-13 07:37] LABS: FIO2 ABG 40
[2020-03-13] MEDS: MIDAZOLAM 100mg/100ml NS BAG 100 ML IV PRN (08:30)
[2020-03-13] MEDS: CHLORHEXIDINE 0.12% 15 ML MOUTHWASH. MM SCH (09:00)
--- NOTE | 2020-03-13 09:35 | NUR ---
pt sedated on the vent no admission interventions completed at this time
[2020-03-13] MEDS ORDERED: POTASSIUM CHLORIDE 20 MEQ TABLET.ER. PO ONE (10:00)
[2020-03-13] MEDS ORDERED: POTASSIUM CHLORIDE 10MEQ 100 ML IV SCH ×2 (10:00)
[2020-03-13] MEDS ORDERED: POTASSIUM CHLORIDE 20 MEQ TABLET.ER. PO SCH (10:00)
[2020-03-13] MEDS ORDERED: POTASSIUM CHLORIDE 20MEQ 100 ML IV SCH (10:00)
[2020-03-13 10:03] LABS: BASE EXCESS ABG -6 mmol/L (-3-3); HCO3 ABG 20 mmol/L (21-28); PCO2 ABG 42 mmHg (35-46); PO2 ABG 97 mmHg (75-108); SAT O2 ABG 97 % (92-99)
[2020-03-13 10:04] LABS: FIO2 ABG 40
--- NOTE | 2020-03-13 10:08 | PDOC ---
[facility] PROGRESS NOTE Date of Service DOS: DATE: 03/13/20 TIME: 10:01 Chief Complaint Chief Complaint Acute toxic and metabolic encephalopathy due to multiple etiologies Acute respiratory failure, unclear hypoxic or hypercapnicremains intubated and sedated Polysubstance abuse Rhabdomyolysis Acute kidney injury due to vasomotor nephropathy Reactive leukocytosis Acute electrolyte derangementshypokalemia Admit to ICU for vent management Pulmonology consult PAT consult when patient is awake Trend CK levels IV potassium replacement Avoid nephrotoxic agents Continue IV fluids to maintain urine output at around 50 cc/h Avoid beta-blockers due to recent cocaine use Lovenox for DVT prophylaxis Protonix GI prophylaxis ADA diet Full code Discussed with RN and SW Disposition ICU care Surrogate decision maker is unknown Total critical care time spent of 35 minutes History of Present Illness History of Present Illness 03/13/2020 No acute events overnight. Patient continues to be sedated and intubated. GCS 3 T. Minimal response on sternal rub. Patient's chart, labs, images were reviewed and discussed with RN 40-year-old male who presents with chief complaint of altered mental status. Per EMS they were called to the patient's house by police for combative behavior. Family states he recently got out of halfway. Family states concern for PCP usage. EMS states on arrival he was naked laying down in the front yard. They state upon arrival the patient was not combative. No medication was administered prior to arrival. No further history can be obtained. Vitals/I&O Vitals/I&O: Vital Signs Date Time Temp Pulse Resp B/P (MAP) Pulse Ox O2 Delivery O2 Flow Rate FiO2 03/13/20 09:37 98.4 70 19 150/90 (110) 100 Ventilator 98.4 I & O 03/12/20 03/12/20 03/13/20 15:00 23:00 07:00 Intake Total 4540 ml 4540 ml Output Total 1300 ml 330 ml 80 ml Balance 3240 ml -330 ml 4460 ml Physical Exam Physical Exam: GEN: No apparent distress. Sedated and intubated HEENT: Normal cephalic, atraumatic, external auditory canals are patent NECK: Supple, no JVD, no thyromegaly was noted LUNGS: Bilateral clear HEART: RRR, S1, S2 present. Peripheral pulses intact, no obvious murmurs noted ABDOMEN: Soft, nontender. Positive bowel sounds, no organomegaly, normal bowel sounds EXTREMITIES: Without clubbing, cyanosis, or edema. Pedal pulses intact. Negative Homans sign Labs Labs: Laboratory Tests Test 03/13/20 06:00 03/13/20 07:15 White Blood Count 9.6 x10^3/uL (4.0-11.0) Red Blood Count 5.00 x10^6/uL (4.30-5.70) Hemoglobin 14.4 g/dL (13.0-17.5) Hematocrit 43.1 % (39.0-53.0) Mean Corpuscular Volume 86 fL (79-100) Mean Corpuscular Hemoglobin 29 pg (25-35) Mean Corpuscular Hemoglobin Concent 33 g/dL (31-37) Red Cell Distribution Width 14.1 % (11.5-14.5) Platelet Count 267 x10^3/uL (140-400) Neutrophils (%) (Auto) 65 % (31-73) Lymphocytes (%) (Auto) 25 % (24-48) Monocytes (%) (Auto) 7 % (0-9) Eosinophils (%) (Auto) 2 % (0-3) Basophils (%) (Auto) 1 % (0-3) Neutrophils # (Auto) 6.3 x10^3/uL (1.8-7.7) Lymphocytes # (Auto) 2.4 x10^3/uL (1.0-4.8) Monocytes # (Auto) 0.7 x10^3/uL (0.0-1.1) Eosinophils # (Auto) 0.1 x10^3/uL (0.0-0.7) Basophils # (Auto) 0.1 x10^3/uL (0.0-0.2) Sodium Level 144 mmol/L (136-145) Potassium Level 3.4 mmol/L (3.5-5.1) Chloride Level 110 mmol/L (98-107) Carbon Dioxide Level 26 mmol/L (21-32) Anion Gap 8 (6-14) Blood Urea Nitrogen 9 mg/dL (8-26) Creatinine 1.1 mg/dL (0.7-1.3) Estimated GFR (Cockcroft-Gault) 90.2 Glucose Level 73 mg/dL (70-99) Calcium Level 8.2 mg/dL (8.5-10.1) Creatine Kinase 1574 U/L (39-308) O2 Saturation 97 % (92-99) Arterial Blood pH 7.41 (7.35-7.45) Arterial Blood pCO2 at Patient Temp 32 mmHg (35-46) Arterial Blood pO2 at Patient Temp 101 mmHg (75-108) Arterial Blood HCO3 20 mmol/L (21-28) Arterial Blood Base Excess -4 mmol/L (-3-3) FiO2 40 Assessment and Plan Assessmemt and Plan Problems Medical Problems: (1) JOLIE (acute kidney injury) Status: Acute (2) Polysubstance abuse Status: Acute (3) Respiratory failure Status: Acute (4) Rhabdomyolysis Status: Acute Comment Review of Relevant I have reviewed the following items octavio (where applicable) has been applied. Medications: Current Medications Medications (Trade) Dose Ordered Sig/Kylee Route PRN Reason Start Time Stop Time Status Last Admin Dose Admin Ampicillin Sodium/ Sulbactam Sodium 3 gm/Sodium Chloride 100 ml @ 200 mls/hr 1X ONCE IV 03/12/20 11:00 03/12/20 11:29 DC 03/12/20 10:52 Midazolam HCl 100 ml @ 1 mls/hr CONT PRN IV SEE I/O RECORD 03/12/20 12:00 03/13/20 08:30 Sodium Chloride 1,000 ml @ 1,000 mls/hr 1X ONCE IV 03/12/20 11:30 03/12/20 14:07 DC 03/12/20 14:30 Justifications for Admission Other Justification KLARISSA MILLER MD Mar 13, 2020 10:08
[2020-03-13] MEDS ORDERED: ELECTROLYTE (ICU) PROTOCOL. MC PRN (10:30)
--- NOTE | 2020-03-13 10:35 | NUR ---
sedation turned off at 0915 . 0930 pt following commands patient place on breathing trial. 1010 pt passed breathing trial and extubated and placed on 4LNC. Pt confused and mumbling at this time.
--- NOTE | 2020-03-13 10:44 | NUR ---
patient more awake, pleasant and cooperative.
[2020-03-13] MEDS: POTASSIUM CHLORIDE 20MEQ 100 ML IV SCH ×2 (11:44→14:11)
--- NOTE | 2020-03-13 12:48 | PDOC2 ---
Pulmonary Consultation DATE: 03/13/20 TIME: 12:39 Pulmonary consultation requested from Dr. Ireland for acute hypoxic respiratory failure secondary to overdose This is a 40-year-old -[place] male who is brought into the emergency department via EMS on 03/12/2020 for combative behavior and respiratory distress. It is reported by his family that the police were called for aggressive and combative behavior. Upon arrival of the police department the patient was found to be naked and laying unresponsive in the front yard. EMS was called and he was brought to the hospital for further medical evaluation and treatment. The patient has a past medical history of hypertension however denies any other past medical history. In the emergency department he had an arterial blood gas which showed a pH of 7.26, PCO2 of 44, PO2 of 114 and a bicarbonate of 19. The patient was unable to maintain his own airway secondary to his overdose and was intubated in the emergency department. This morning he was more awake and his arterial blood gas showed compensation he was extubated and is now on room air. Upon examination he is resting comfortably in bed without any acute signs and symptoms of distress. He remains on nasal cannula oxygen he denies any shortness of breath, chest pain, headache, dizziness, abdominal pain, nausea, vomiting, changes in bowel or bladder. He also denies any recreational drug use however his toxicology report was positive for marijuana, cocaine, and PCP. Medical History Hypertension Polysubstance abuse Surgical History Denies Medications Current Medications Lorazepam (Ativan Inj) 2 mg STK-MED ONCE .ROUTE ; Start 03/12/20 at 08:05; Stop 03/12/20 at 08:06; Status DC Ondansetron HCl (Zofran) 4 mg STK-MED ONCE .ROUTE ; Start 03/12/20 at 08:14; Stop 03/12/20 at 08:14; Status DC Fentanyl Citrate 30 ml @ 0 mls/hr CONT PRN IV SEE PROTOCOL; Start 03/12/20 at 09:00; Stop 03/13/20 at 12:07; Status DC Fentanyl Citrate (Fentanyl 2ml Vial) 25 mcg PRN Q1HR PRN IV SEE COMMENTS; Start 03/12/20 at 08:30; Stop 03/13/20 at 12:07; Status DC Fentanyl Citrate (Fentanyl 2ml Vial) 50 mcg PRN Q1HR PRN IV SEE COMMENTS Last administered on 03/13/20at 07:33; Start 03/12/20 at 08:30; Stop 03/13/20 at 12:07; Status DC Chlorhexidine Gluconate (Peridex) 15 ml BID MM Last administered on 03/12/20at 21:38; Start 03/12/20 at 09:00; Stop 03/13/20 at 12:07; Status DC Morphine Sulfate (Morphine Sulfate) 2 mg PRN Q1HR PRN IV SEE COMMENTS.; Start 03/12/20 at 08:30; Stop 03/13/20 at 12:07; Status DC Morphine Sulfate (Morphine Sulfate) 4 mg PRN Q1HR PRN IV SEE COMMENTS.; Start 03/12/20 at 08:30; Stop 03/13/20 at 12:07; Status DC Levetiracetam 4500 mg/Dextrose 145 ml @ 440 mls/hr 1X ONCE IV Last administered on 03/12/20at 09:15; Start 03/12/20 at 09:00; Stop 03/12/20 at 0 9:19; Status DC Propofol 100 ml @ 1.5 mls/hr CONT PRN IV SEDATION Last administered on 03/12/20at 09:03; Start 03/12/20 at 09:00; Stop 03/13/20 at 12:07; Status DC Iohexol (Omnipaque 300 Mg/ml) 75 ml 1X ONCE IV Last administered on 03/12/20at 09:52; Start 03/12/20 at 09:30; Stop 03/12/20 at 09:31; Status DC Info (CONTRAST GIVEN -- Rx MONITORING) 1 each PRN DAILY PRN MC SEE COMMENTS; Start 03/12/20 at 09:15; Stop 03/14/20 at 09:14 Enoxaparin Sodium (Lovenox 40mg Syringe) 30 mg BID ONCE SQ Last administered on 03/12/20at 13:10; Start 03/12/20 at 10:00; Stop 03/12/20 at 10:01; Status DC Etomidate (Amidate) 20 mg STK-MED ONCE IV ; Start 03/12/20 at 09:52; Stop 03/12/20 at 09:52; Status DC Rocuronium Naches (Zemuron) 50 mg STK-MED ONCE .ROUTE ; Start 03/12/20 at 09:52; Stop 03/12/20 at 09:53; Status DC Ampicillin Sodium/ Sulbactam Sodium 3 gm/Sodium Chloride 100 ml @ 200 mls/hr 1X ONCE IV Last administered on 03/12/20at 10:52; Start 03/12/20 at 11:00; Stop 03/12/20 at 11:29; Status DC Midazolam HCl 100 ml @ 1 mls/hr CONT PRN IV SEE I/O RECORD Last administered on 03/13/20at 08:30; Start 03/12/20 at 12:00; Stop 03/13/20 at 12:07; Status DC Norepinephrine Bitartrate 8 mg/ Dextrose 258 ml @ 18.576 mls/ hr CONT PRN IV PER PROTOCOL; Start 03/12/20 at 12:00; Stop 03/13/20 at 12:07; Status DC Sodium Chloride 1,000 ml @ 30 mls/hr Q24H IV ; Start 03/12/20 at 13:00 Sodium Chloride 1,000 ml @ 1,000 mls/hr 1X ONCE IV Last administered on 03/12/20at 14:31; Start 03/12/20 at 08:10; Stop 03/12/20 at 14:07; Status DC Sodium Chloride 1,000 ml @ 1,000 mls/hr 1X ONCE IV Last administered on 03/12/20at 14:29; Start 03/12/20 at 08:43; Stop 03/12/20 at 14:07; Status DC Sodium Chloride 1,000 ml @ 1,000 mls/hr 1X ONCE IV Last administered on 03/12/20at 14:27; Start 03/12/20 at 08:05; Stop 03/12/20 at 14:07; Status DC Sodium Chloride 1,000 ml @ 1,000 mls/hr 1X ONCE IV Last administered on 03/12/20at 14:30; Start 03/12/20 at 11:30; Stop 03/12/20 at 14:07; Status DC Potassium Chloride (Klor-Con) 40 meq 1X ONCE PO ; Start 03/13/20 at 10:00; Stop 03/13/20 at 10:01; Status UNV Potassium Chloride/Water 100 ml @ 100 mls/hr Q1H IV ; Start 03/13/20 at 10:00; Stop 03/13/20 at 13:59; Status UNV Potassium Chloride/Water 100 ml @ 50 mls/hr Q2H IV Last administered on 03/13/20at 11:44; Start 03/13/20 at 11:00; Stop 03/13/20 at 14:59 Potassium Chloride (Klor-Con) 40 meq Q2H PO ; Start 03/13/20 at 10:00; Stop 03/13/20 at 12:01; Status UNV Potassium Chloride/Water 100 ml @ 100 mls/hr Q1H IV ; Start 03/13/20 at 10:00; Stop 03/13/20 at 17:59; Status UNV Potassium Chloride/Water 100 ml @ 100 mls/hr Q1H IV ; Start 03/13/20 at 10:00; Stop 03/13/20 at 13:59; Status UNV Magnesium Sulfate 100 ml @ 50 mls/hr DAILY IV ; Start 03/14/20 at 09:00; Stop 03/17/20 at 08:59; Status UNV Info (Icu Electrolyte Protocol) 1 ea CONT PRN PRN MC SEE COMMENTS; Start at 10:30 Allergies Allergies Coded Allergies Type Severity Reaction Last Updated Verified No Known Drug Allergies 03/13/20 No Social History The patient denies any tobacco use, alcohol use or recreational drug use however his toxicology screen was positive for marijuana, cocaine and PCP. Family History Family history is reviewed with the patient is noncontributory to admission. System Review A 12 point review of systems is reviewed with the patient is negative except for pertinent positives in the HPI. Vital Signs Vital Signs Date Time Temp Pulse Resp B/P (MAP) Pulse Ox O2 Delivery O2 Flow Rate FiO2 03/13/20 11:00 77 16 177/88 (117) 96 Nasal Cannula 4.0 03/13/20 09:37 98.4 98.4 Last Labs Laboratory Tests Test 03/13/20 06:00 03/13/20 07:15 03/13/20 09:53 White Blood Count 9.6 x10^3/uL (4.0-11.0) Red Blood Count 5.00 x10^6/uL (4.30-5.70) Hemoglobin 14.4 g/dL (13.0-17.5) Hematocrit 43.1 % (39.0-53.0) Mean Corpuscular Volume 86 fL (79-100) Mean Corpuscular Hemoglobin 29 pg (25-35) Mean Corpuscular Hemoglobin Concent 33 g/dL (31-37) Red Cell Distribution Width 14.1 % (11.5-14.5) Platelet Count 267 x10^3/uL (140-400) Neutrophils (%) (Auto) 65 % (31-73) Lymphocytes (%) (Auto) 25 % (24-48) Monocytes (%) (Auto) 7 % (0-9) Eosinophils (%) (Auto) 2 % (0-3) Basophils (%) (Auto) 1 % (0-3) Neutrophils # (Auto) 6.3 x10^3/uL (1.8-7.7) Lymphocytes # (Auto) 2.4 x10^3/uL (1.0-4.8) Monocytes # (Auto) 0.7 x10^3/uL (0.0-1.1) Eosinophils # (Auto) 0.1 x10^3/uL (0.0-0.7) Basophils # (Auto) 0.1 x10^3/uL (0.0-0.2) Sodium Level 144 mmol/L (136-145) Potassium Level 3.4 mmol/L (3.5-5.1) Chloride Level 110 mmol/L (98-107) Carbon Dioxide Level 26 mmol/L (21-32) Anion Gap 8 (6-14) Blood Urea Nitrogen 9 mg/dL (8-26) Creatinine 1.1 mg/dL (0.7-1.3) Estimated GFR (Cockcroft-Gault) 90.2 Glucose Level 73 mg/dL (70-99) Calcium Level 8.2 mg/dL (8.5-10.1) Creatine Kinase 1574 U/L (39-308) O2 Saturation 97 % (92-99) 97 % (92-99) Arterial Blood pH 7.41 (7.35-7.45) 7.30 (7.35-7.45) Arterial Blood pCO2 at Patient Temp 32 mmHg (35-46) 42 mmHg (35-46) Arterial Blood pO2 at Patient Temp 101 mmHg (75-108) 97 mmHg (75-108) Arterial Blood HCO3 20 mmol/L (21-28) 20 mmol/L (21-28) Arterial Blood Base Excess -4 mmol/L (-3-3) -6 mmol/L (-3-3) FiO2 40 40 Chest X-rays IMPRESSION: 1. Endotracheal tube tip is 4.6 cm superior to the kendall. 2. Lungs are clear. 3. Possible metallic foreign body of the upper left chest. Other Imaging CT ABD/PLVS IMPRESSION: 1. Bibasilar dependent opacities probably represents subsegmental atelectasis, although aspiration could have a similar appearance. 2. No acute abdominal process. 3. No acute thoracic or lumbar spine fracture. Assessment Acute hypoxic respiratory failure secondary to polysubstance overdose Substance abuse Hypokalemia Rhabdomyolysis Acute kidney injury Plan Patient is now extubated on room air, supplemental oxygen as needed to keep oxygen saturations greater than 92% Patient is now stable from a pulmonary standpoint Continue IV fluids, monitor CK Social work/PET team consult Monitor electrolytes and replace accordingly Monitor renal function Lovenox for DVT prophylaxis Protonix GI prophylaxis Thank you for this consultation with this patient however he is now clinically stable from a pulmonary standpoint and we will sign off if you have any further questions or concerns please feel free to call thank you RONALD BLAS MD Mar 13, 2020 12:48
[2020-03-13] MEDS: IV NORMAL SALINE 1000ML BAG 1,000 ML IV SCH (14:14)
--- NOTE | 2020-03-13 18:43 | NUR ---
no gag reflex at this time.
--- NOTE | 2020-03-13 19:43 | NUR ---
pt is a/o x4, is demanding food and drink but still has no gag reflex. bed alarm on, pt is demanding to leave, will call MD for orders
--- NOTE | 2020-03-13 21:59 | NUR ---
Bedside swallow trial with two ounces of water showed no coughing, no choking and that patient was able to manage secretions and swallow without difficulty nor any signs of aspiration. MD called to advance diet.
[2020-03-14 03:40] VITALS: BP 156/96
[2020-03-14 07:00] VITALS: BP 163/105
[2020-03-14] MEDS ORDERED: MAGNESIUM SULFATE 4GM 100 ML IV SCH (09:00)
[2020-03-14] MEDS ORDERED: ELECTROLYTE (NON-ICU) PROTOCOL MC PRN (10:00)
[2020-03-14 11:00] VITALS: BP 155/104
--- NOTE | 2020-03-14 11:40 | NUR ---
SS following for discharge planning. SS reviewed pt chart and discussed with pt RN. Pt is from home and is currently on room air. Pt positive for Cocaine, PCP, and Marijuana. PAT team referral made for assessment and recommendations. SS will continue to follow for discharge planning.
[2020-03-14] MEDS: IV NORMAL SALINE 1000ML BAG 1,000 ML IV SCH (13:08)
[2020-03-14] MEDS ORDERED: IV NORMAL SALINE 1000ML BAG 1,000 ML IV SCH (13:15)
--- NOTE | 2020-03-14 13:16 | PDOC ---
[employer] PROGRESS NOTE Date of Service DOS: DATE: 03/14/20 TIME: 13:07 Chief Complaint Chief Complaint A/P: Acute toxic and metabolic encephalopathy due to multiple etiologies Acute respiratory failure, unclear hypoxic or hypercapnicremains intubated and sedated Polysubstance abuse Rhabdomyolysis Acute kidney injury due to vasomotor nephropathy Reactive leukocytosis Acute electrolyte derangementshypokalemia Plan: Repeat labs History of Present Illness History of Present Illness Mr Gandhi is a 40-year-old male who presents with chief complaint of altered mental status. Per EMS they were called to the patient's house by police for combative behavior. Family states he recently got out of [facility]. Family states concern for PCP usage. EMS states on arrival he was naked laying down in the front yard. They state upon arrival the patient was not combative. No medication was administered prior to arrival. No further history can be obtained. UDS positive for cannabinoids, PCP, cocaine. 03/13: No acute events overnight. Patient continues to be sedated and intubated. GCS 3 T. Minimal response on sternal rub. Patient's chart, labs, images were reviewed and discussed with RN Extubated, transferred to medical floor. Tells me he is feeling stronger to ambulate has good appetite. No shortness of breath or chest pain. He does note number why he came to the hospital. 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 Vitals/I&O Vitals/I&O: Vital Signs Date Time Temp Pulse Resp B/P (MAP) Pulse Ox O2 Delivery O2 Flow Rate FiO2 03/14/20 11:00 98.2 61 17 155/104 (121) 98 Room Air 98.2 03/13/20 11:00 4.0 I & O 03/13/20 03/13/20 03/14/20 15:00 23:00 07:00 Intake Total 240 ml 240 ml 560 ml Output Total 970 ml 800 ml 1450 ml Balance -730 ml -560 ml -890 ml Physical Exam General: Alert, Oriented X3, Cooperative Heart: Regular rate, Normal S1, Normal S2 Lungs: Clear Abdomen: Normal bowel sounds, Soft Extremities: No clubbing, No cyanosis Skin: No rashes, No breakdown Labs Labs: Laboratory Tests Test 03/13/20 16:00 03/13/20 18:55 Creatine Kinase 3310 U/L (39-308) 3091 U/L (39-308) Assessment and Plan Assessmemt and Plan Problems Medical Problems: (1) JOLIE (acute kidney injury) Status: Acute (2) Polysubstance abuse Status: Acute (3) Respiratory failure Status: Acute (4) Rhabdomyolysis Status: Acute Comment Review of Relevant I have reviewed the following items octavio (where applicable) has been applied. Justifications for Admission Other Justification AGNIESZKA MOSQUERA MD Mar 14, 2020 13:16
[2020-03-14 15:00] VITALS: BP 163/94
[2020-03-14 15:43] LABS: ALBUMIN 3.2 g/dL (3.4-5.0); ALBUMIN/GLOBULIN RATIO 1.2 (1.0-1.7); CALCIUM 7.9 mg/dL (8.5-10.1); CREATININE 0.9 mg/dL (0.7-1.3); GFR 113.7; POTASSIUM 3.6 mmol/L (3.5-5.1); TOTAL BILIRUBIN 0.4 mg/dL (0.2-1.0); TOTAL PROTEIN 5.8 g/dL (6.4-8.2)
--- NOTE | 2020-03-14 16:01 | NUR ---
SS following up with discharge planning. Elizabeth from PAT team met with pt and discussed substance abuse. Pt declined services at this time. Resources provided to pt. SS will continue to follow for discharge planning.
[2020-03-14] MEDS ORDERED: POTASSIUM CHLORIDE 20 MEQ TABLET.ER. PO ONE (16:15)
--- NOTE | 2020-03-14 16:25 | PDOC3 ---
Discharge Summary Visit Information Date of Admission: Mar 12, 2020 Date of Discharge: Mar 14, 2020 Admitting Diagnosis: Hypoxic respiratory failure Final Diagnosis Problems Medical Problems: (1) JOLIE (acute kidney injury) Status: Acute (2) Polysubstance abuse Status: Acute (3) Respiratory failure Status: Acute (4) Rhabdomyolysis Status: Acute Brief Hospital Course Allergies Allergies Coded Allergies Type Severity Reaction Last Updated Verified No Known Drug Allergies 03/13/20 No Vital Signs Vital Signs Date Time Temp Pulse Resp B/P (MAP) Pulse Ox O2 Delivery O2 Flow Rate FiO2 03/14/20 11:00 98.2 61 17 155/104 (121) 98 Room Air 98.2 03/13/20 11:00 4.0 Lab Results Laboratory Tests Test 03/13/20 06:00 03/13/20 07:15 03/13/20 09:53 03/13/20 16:00 White Blood Count 9.6 x10^3/uL (4.0-11.0) Red Blood Count 5.00 x10^6/uL (4.30-5.70) Hemoglobin 14.4 g/dL (13.0-17.5) Hematocrit 43.1 % (39.0-53.0) Mean Corpuscular Volume 86 fL (79-100) Mean Corpuscular Hemoglobin 29 pg (25-35) Mean Corpuscular Hemoglobin Concent 33 g/dL (31-37) Red Cell Distribution Width 14.1 % (11.5-14.5) Platelet Count 267 x10^3/uL (140-400) Neutrophils (%) (Auto) 65 % (31-73) Lymphocytes (%) (Auto) 25 % (24-48) Monocytes (%) (Auto) 7 % (0-9) Eosinophils (%) (Auto) 2 % (0-3) Basophils (%) (Auto) 1 % (0-3) Neutrophils # (Auto) 6.3 x10^3/uL (1.8-7.7) Lymphocytes # (Auto) 2.4 x10^3/uL (1.0-4.8) Monocytes # (Auto) 0.7 x10^3/uL (0.0-1.1) Eosinophils # (Auto) 0.1 x10^3/uL (0.0-0.7) Basophils # (Auto) 0.1 x10^3/uL (0.0-0.2) Sodium Level 144 mmol/L (136-145) Potassium Level 3.4 mmol/L (3.5-5.1) Chloride Level 110 mmol/L (98-107) Carbon Dioxide Level 26 mmol/L (21-32) Anion Gap 8 (6-14) Blood Urea Nitrogen 9 mg/dL (8-26) Creatinine 1.1 mg/dL (0.7-1.3) Estimated GFR (Cockcroft-Gault) 90.2 Glucose Level 73 mg/dL (70-99) Calcium Level 8.2 mg/dL (8.5-10.1) Creatine Kinase 1574 U/L (39-308) 3310 U/L (39-308) O2 Saturation 97 % (92-99) 97 % (92-99) Arterial Blood pH 7.41 (7.35-7.45) 7.30 (7.35-7.45) Arterial Blood pCO2 at Patient Temp 32 mmHg (35-46) 42 mmHg (35-46) Arterial Blood pO2 at Patient Temp 101 mmHg (75-108) 97 mmHg (75-108) Arterial Blood HCO3 20 mmol/L (21-28) 20 mmol/L (21-28) Arterial Blood Base Excess -4 mmol/L (-3-3) -6 mmol/L (-3-3) FiO2 40 40 Test 03/13/20 18:55 03/14/20 14:30 Creatine Kinase 3091 U/L (39-308) 2582 U/L (39-308) Sodium Level 144 mmol/L (136-145) Potassium Level 3.6 mmol/L (3.5-5.1) Chloride Level 109 mmol/L (98-107) Carbon Dioxide Level 27 mmol/L (21-32) Anion Gap 8 (6-14) Blood Urea Nitrogen 4 mg/dL (8-26) Creatinine 0.9 mg/dL (0.7-1.3) Estimated GFR (Cockcroft-Gault) 113.7 BUN/Creatinine Ratio 4 (6-20) Glucose Level 123 mg/dL (70-99) Calcium Level 7.9 mg/dL (8.5-10.1) Magnesium Level 1.9 mg/dL (1.8-2.4) Total Bilirubin 0.4 mg/dL (0.2-1.0) Aspartate Amino Transf (AST/SGOT) 64 U/L (15-37) Alanine Aminotransferase (ALT/SGPT) 27 U/L (16-63) Alkaline Phosphatase 70 U/L (46-116) Total Protein 5.8 g/dL (6.4-8.2) Albumin 3.2 g/dL (3.4-5.0) Albumin/Globulin Ratio 1.2 (1.0-1.7) Laboratory Tests Test 03/13/20 18:55 03/14/20 14:30 Creatine Kinase 3091 U/L (39-308) 2582 U/L (39-308) Sodium Level 144 mmol/L (136-145) Potassium Level 3.6 mmol/L (3.5-5.1) Chloride Level 109 mmol/L (98-107) Carbon Dioxide Level 27 mmol/L (21-32) Anion Gap 8 (6-14) Blood Urea Nitrogen 4 mg/dL (8-26) Creatinine 0.9 mg/dL (0.7-1.3) Estimated GFR (Cockcroft-Gault) 113.7 BUN/Creatinine Ratio 4 (6-20) Glucose Level 123 mg/dL (70-99) Calcium Level 7.9 mg/dL (8.5-10.1) Magnesium Level 1.9 mg/dL (1.8-2.4) Total Bilirubin 0.4 mg/dL (0.2-1.0) Aspartate Amino Transf (AST/SGOT) 64 U/L (15-37) Alanine Aminotransferase (ALT/SGPT) 27 U/L (16-63) Alkaline Phosphatase 70 U/L (46-116) Total Protein 5.8 g/dL (6.4-8.2) Albumin 3.2 g/dL (3.4-5.0) Albumin/Globulin Ratio 1.2 (1.0-1.7) Brief Hospital Course Mr Gandhi is a 40-year-old male who presents with chief complaint of altered mental status. Per EMS they were called to the patient's house by police for combative behavior. Family states he recently got out of [facility]. Family states concern for PCP usage. EMS states on arrival he was naked laying down in the front yard. They state upon arrival the patient was not combative. No me dication was administered prior to arrival. No further history can be obtained. UDS positive for cannabinoids, PCP, cocaine. 03/13: No acute events overnight. Patient continues to be sedated and intubated. GCS 3 T. Minimal response on sternal rub. Patient's chart, labs, images were reviewed and discussed with RN Extubated, transferred to medical floor. Tells me he is feeling stronger to ambulate has good appetite. No shortness of breath or chest pain. He does note number why he came to the hospital. 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 His CPK and renal function, hepatic function improved. Able to ambulate and eat without assistance. Seen by psychiatric liaison and offered substance abuse services, he declined services. Did admit to smoking "a little something". Consults: pulmonology Problem list: Acute toxic and metabolic encephalopathy due to multiple etiologies Acute respiratory failure, unclear hypoxic or hypercapnicremains intubated and sedated Polysubstance abuse Rhabdomyolysis Acute kidney injury due to vasomotor nephropathy Reactive leukocytosis Acute electrolyte derangementshypokalemia Greater than 30 minutes spent on d/c home Discharge Information Condition at Discharge: Improved Follow Up: Weeks (1) Disposition/Orders: D/C to Home No Active Prescriptions or Reported Meds Justicifation of Admission Dx: Justifications for Admission: Justification of Admission Dx: Yes Respiratory Failure: Severe Resp Distress Altered Mental Status: Altered Mental Status AGNIESZKA MOSQUERA MD Mar 14, 2020 16:24
--- NOTE | 2020-03-14 18:50 | NUR ---
Discharge Note: [facility] [place] Discharge instructions and discharge home medications reviewed with Patient and a copy given. All questions have been answered and understanding verbalized. The following instructions and handouts were given: discharge instructions, rhabdo info, JOLIE info, polysubstance abuse info, resp failure info, PCP contact info. Discontinued lines and drains: Peripheral IV intact. Patient discharged to Home or Self Care with Friend via Wheelchair at 1850.
== END 2020-03-14 18:50 | disposition home or self-care (01) | DRG 917 ==
LOC: ER 07:51 → ED HOLD 10:30 → 2 NORTH 03-13 11:44
PROVIDERS: ADMIT Internal Medicine; ATTEND Internal Medicine
PROC: 5A1945Z Respiratory Ventilation, 24-96 Consecutive Hours (ICD-10-PCS; principal; 2020-03-12)
PROC: 0BH17EZ Insertion of Endotracheal Airway into Trachea, Via Natural or Artificial Opening (ICD-10-PCS; 2020-03-12)
DX: T50.911A Poisoning by multiple unspecified drugs, medicaments and biological substances, accidental (unintentional), initial encounter (principal); J96.01 Acute respiratory failure with hypoxia; G92 Toxic encephalopathy; N17.0 Acute kidney failure with tubular necrosis; J96.02 Acute respiratory failure with hypercapnia; M62.82 Rhabdomyolysis; F19.10 Other psychoactive substance abuse, uncomplicated; D72.828 Other elevated white blood cell count; E87.6 Hypokalemia; I10 Essential (primary) hypertension; G62.9 Polyneuropathy, unspecified; Y92.89 Other specified places as the place of occurrence of the external cause
CPT/HCPCS: 36415; 36600; 70450; 71045; 71260; 72125; 73562; 74177; 80048; 80053; 80307; 80329; 81001; 82550; 82805; 82962; 83605; 83690; 83735; 83880; 84484; 85007; 85025; 87040; 93005; 94002; 94003; 94760; 96361; 96365; 96367; 96375; 99285; G0480; J0295; J1650; J1953; J2250; J2704; J3010; J3480; J7030; J7060; Q9967; G0378